=== PATIENT | male | born 1930 | race Two or more races ===

== ENCOUNTER 2017-07-24 17:49 | Inpatient (IN) | payer MEDICARE, OTHER ==
[~2017-07-24] VITALS: Ht 167.6 cm; Wt 77.6 kg
[~2017-07-24 17:49] MED LIST: [UNRECOGNIZED DRUG - CODE]
[2017-07-24 19:15] LABS: Basophils # (auto) 0 uL; Basophils % (auto) 0.4 % (0.0-2.0); Eosinophils # (auto) 0 uL; Hematocrit 30.6 % (41.0-53.0); Lymphocytes # (auto) 0.5 uL; Lymphocytes % (auto) 6.4 % (10.0-50.0); Mean Corpuscular Hemoglobin 31.5 pg (28.0-32.0); Mean Corpuscular Hgb Conc. 32.5 g/dL (32.0-36.0); Mean Corpuscular Volume 96.9 fL (80.0-100.0); Mean Platelet Volume 7.9 fL (6.9-10.8); Monocytes # (auto) 0.6 uL; Monocytes % (auto) 7.5 % (0.0-12.0); Neutrophils # (auto) 7.1 uL; Neutrophils % (auto) 85.7 % (37.0-80.0); Platelet Count (auto) 298 10^3/uL (140-450); Red Cell Distribution Width 16.9 % (11.8-14.3); White Blood Cell 8.3 10^3/uL (4.4-10.8)
[2017-07-24 19:38] LABS: INR 1.32 (0.9-1.15)
[2017-07-24 19:43] LABS: Albumin 2.5 g/dL (3.4-5.0); BUN/Creatinine Ratio 20.5; Bilirubin, Total 1.4 mg/dL (0.2-1.0); Calcium 8.1 mg/dL (8.5-10.1); Magnesium 2.6 mg/dL (1.6-2.6); Potassium 5.3 mmol/L (3.5-5.1); Total Protein 7.8 g/dL (6.4-8.2)
[2017-07-24 20:34] LABS: B-Type Natriuretic Peptide > 5000.00 pg/mL (0-100)
[2017-07-24 20:52] LABS: Temperature: 22.2 C (20.0-25.0)
[2017-07-24 22:29] LABS: Urine Bilirubin Negative (Negative); Urine Blood TRACE /uL (Negative); Urine Color Yellow (Yellow); Urine Glucose Normal (Normal); Urine Hyaline Cast MOD /lpf (0 - 2); Urine Ketone Negative (Negative); Urine Mucus FEW (None Seen); Urine Nitrite Negative (Negative); Urine RBC 4 /hpf (0 - 3); Urine Squamous Epithelial Cell FEW /hpf (<5); Urine Urobilinogen Normal (Negative); Urine pH 5.5 (5.0-8.0)
[2017-07-24] MEDS ORDERED: FUROSEMIDE 20 MG/2 ML VIAL IV ONE (22:45)
[2017-07-24] MEDS ORDERED: ASPirin 81 mg TAB PO ONE (22:45)
[2017-07-25] MEDS ORDERED: cefTRIAXone 1GM/50ML D5W 50 ML IV ONE ×2 (01:15→02:45)
[2017-07-25] MEDS ORDERED: LIDOCAINE 2% JELLY 11ml (GLYDO) UR ONE (01:45)
[2017-07-25] MEDS ORDERED: HYDROmorphone HCL 2 MG/ML VL IV PRN (02:15)
[2017-07-25] MEDS ORDERED: ONDANSETRON HCL 4 MG/2 ML VIAL IV PRN (02:15)
[2017-07-25] MEDS ORDERED: TEMAZEPAM 15 MG CAP PO PRN (02:15)
[2017-07-25] MEDS ORDERED: HYDROcodone-ACET 5/325MG TAB PO PRN (02:15)
[2017-07-25] MEDS ORDERED: NITROGLYCERIN 0.4 MG SL TAB SL PRN (02:15)
[2017-07-25] MEDS ORDERED: ACETAMINOPHEN 325 MG TAB PO PRN (02:15)
[2017-07-25] MEDS ORDERED: LEVOFLOXACIN 750MG 150 ML IV ONE (02:30)
[2017-07-25] MEDS ORDERED: FUROSEMIDE 20 MG/2 ML VIAL IV ONE (03:00)
[2017-07-25] MEDS ORDERED: FUROSEMIDE 20 MG/2 ML VIAL ONE (03:55)
[2017-07-25] MEDS ORDERED: FUROSEMIDE 20 MG TAB PO SCH (06:00)
[2017-07-25] MEDS ORDERED: FUROSEMIDE 20 MG/2 ML VIAL IV SCH (06:00)
[2017-07-25] MEDS ORDERED: BUMETANIDE (0.25 MG/ML) INJ 10ML IV ONE (09:30)
[2017-07-25] MEDS: ENOXAPARIN SOD 30 MG/0.3 ML SYRINGE SC SCH (09:50)
[2017-07-25] MEDS: PANTOPRAZOLE 40 MG TAB PO SCH (09:50)
[2017-07-25] MEDS: AMIODARONE HCL 200 MG TAB PO SCH (09:50)
[2017-07-25] MEDS ORDERED: METOPROLOL SUCCINATE XL 50 MG TAB PO SCH (10:00)
[2017-07-25 12:26] LABS: Basophils # (auto) 0 uL; Basophils % (auto) 0.6 % (0.0-2.0); Eosinophils # (auto) 0 uL; Hematocrit 31.1 % (41.0-53.0); Hemoglobin 10.2 g/dL (13.5-17.5); Lymphocytes # (auto) 0.5 uL; Lymphocytes % (auto) 6.4 % (10.0-50.0); Mean Corpuscular Hemoglobin 31.8 pg (28.0-32.0); Mean Corpuscular Hgb Conc. 32.8 g/dL (32.0-36.0); Mean Corpuscular Volume 97.1 fL (80.0-100.0); Mean Platelet Volume 7.7 fL (6.9-10.8); Monocytes # (auto) 0.5 uL; Monocytes % (auto) 6.3 % (0.0-12.0); Neutrophils # (auto) 7.1 uL; Neutrophils % (auto) 86.7 % (37.0-80.0); Nucleated Red Blood Cells % 0.1 %; Platelet Count (auto) 269 10^3/uL (140-450); Red Cell Distribution Width 16.5 % (11.8-14.3); White Blood Cell 8.2 10^3/uL (4.4-10.8)
[2017-07-25 12:46] LABS: BUN/Creatinine Ratio 20.8; Calcium 7.9 mg/dL (8.5-10.1); Potassium 4.3 mmol/L (3.5-5.1)
[2017-07-25 12:55] LABS: Phosphorus 3.8 mg/dL (2.5-4.90)
[2017-07-25 14:08] VITALS: BP 97/68
[2017-07-25] MEDS ORDERED: METO25TA5 PO (15:34)
[2017-07-25] MEDS ORDERED: AMIO200T33 PO (15:34)
[2017-07-25] MEDS ORDERED: SIMV10TA84 PO (15:34)
[2017-07-25] MEDS ORDERED: MULT-228 PO (15:34)
[2017-07-25] MEDS ORDERED: FERR1TAB36 PO (15:34)
[2017-07-25] MEDS ORDERED: BUME0.5T3 PO (15:34)
[2017-07-25] MEDS ORDERED: TRAM50TA2 PO (15:34)
[2017-07-25] MEDS ORDERED: LORA-622 PO (15:34)
[2017-07-25] MEDS: BUMETANIDE (0.25MG/ML) 4 ML VIAL IV SCH ×2 (16:59→18:24)
[2017-07-25 17:00] VITALS: BP 101/61
[2017-07-25] MEDS: POTASSIUM CHL 10% (20 MEQ/15ML) 15ml ORAL SOLN PO SCH (17:00)
[2017-07-25 20:00] VITALS: BP 112/63
[2017-07-25] MEDS ORDERED: SIMVASTATIN 10 MG PO SCH (22:00)
[2017-07-25] MEDS: cefTRIAXone 1GM/50ML D5W 50 ML IV SCH (22:11)
[2017-07-25] MEDS: PRAVASTATIN SODIUM 20 MG TAB PO SCH (22:12)
[2017-07-26 04:37] VITALS: BP 95/47
[2017-07-26] MEDS: BUMETANIDE (0.25MG/ML) 4 ML VIAL IV SCH ×2 (06:00→17:32)
[2017-07-26 07:02] LABS: Basophils # (auto) 0 uL; Basophils % (auto) 0.4 % (0.0-2.0); Eosinophils # (auto) 0 uL; Eosinophils % (auto) 0.1 % (0.0-7.0); Hematocrit 27.8 % (41.0-53.0); Hemoglobin 9.4 g/dL (13.5-17.5); Lymphocytes # (auto) 0.5 uL; Lymphocytes % (auto) 5.8 % (10.0-50.0); Mean Corpuscular Hemoglobin 32.3 pg (28.0-32.0); Mean Corpuscular Hgb Conc. 33.8 g/dL (32.0-36.0); Mean Corpuscular Volume 95.6 fL (80.0-100.0); Mean Platelet Volume 8.2 fL (6.9-10.8); Monocytes # (auto) 0.5 uL; Neutrophils % (auto) 87.7 % (37.0-80.0); Platelet Count (auto) 275 10^3/uL (140-450); Red Cell Distribution Width 16.6 % (11.8-14.3)
[2017-07-26 07:08] LABS: Albumin 2.1 g/dL (3.4-5.0); Bilirubin, Total 1.1 mg/dL (0.2-1.0); Calcium 7.8 mg/dL (8.5-10.1); Magnesium 2.4 mg/dL (1.6-2.6); Potassium 4.2 mmol/L (3.5-5.1); Total Protein 6.9 g/dL (6.4-8.2)
[2017-07-26] MEDS: POTASSIUM CHL 10% (20 MEQ/15ML) 15ml ORAL SOLN PO SCH ×2 (08:46→17:32)
[2017-07-26 09:00] VITALS: BP 80/46
[2017-07-26] MEDS: ENOXAPARIN SOD 30 MG/0.3 ML SYRINGE SC SCH (10:38)
[2017-07-26] MEDS: PANTOPRAZOLE 40 MG TAB PO SCH (10:38)
[2017-07-26] MEDS: AMIODARONE HCL 200 MG TAB PO SCH (10:38)
[2017-07-26 13:00] VITALS: BP 104/67
[2017-07-26 17:00] VITALS: BP 109/67
[2017-07-26] MEDS: BOOST PLUS 8 ounce PO SCH (18:00)
[2017-07-26 20:00] VITALS: BP 99/51
[2017-07-26] MEDS: cefTRIAXone 1GM/50ML D5W 50 ML IV SCH (21:46)
[2017-07-26] MEDS: PRAVASTATIN SODIUM 20 MG TAB PO SCH (21:46)
[2017-07-26 21:47] VITALS: BP 99/51
[2017-07-26] MEDS ORDERED: LEVOFLOXACIN 750MG 150 ML IV SCH (22:00)
[2017-07-27 05:00] VITALS: BP 96/58
[2017-07-27] MEDS: BUMETANIDE (0.25MG/ML) 4 ML VIAL IV SCH (05:51)
[2017-07-27] MEDS: BOOST PLUS 8 ounce PO SCH (07:44)
[2017-07-27] MEDS: POTASSIUM CHL 10% (20 MEQ/15ML) 15ml ORAL SOLN PO SCH (07:45)
[2017-07-27 08:00] VITALS: BP 116/75
[2017-07-27 08:05] VITALS: BP 116/75
[2017-07-27] MEDS: PANTOPRAZOLE 40 MG TAB PO SCH (10:11)
[2017-07-27] MEDS: AMIODARONE HCL 200 MG TAB PO SCH (10:11)
[2017-07-27] MEDS: ENOXAPARIN SOD 30 MG/0.3 ML SYRINGE SC SCH (10:11)
[2017-07-27 11:27] LABS: INR 1.26 (0.9-1.15); Prothrombin Time 13.8 sec (9.37-12.3)
[2017-07-27 13:13] VITALS: BP 113/63
[2017-07-27 16:29] VITALS: BP 94/58
[2017-07-27 18:18] LABS: Body Fluid Polymorphonuclear 4 %
== END 2017-07-27 16:50 | disposition home health service (06) | DRG 682 ==
LOC: EDBD 17:49 → ER 18:03 → TELE 18:04 → TELE-CENTR 07-25 14:05
PROVIDERS: ADMIT Nurse Practitioner; ATTEND Internal Medicine
PROC: 5A09357 Assistance with Respiratory Ventilation, Less than 24 Consecutive Hours, Continuous Positive Airway Pressure (ICD-10-PCS; 2017-07-24)
PROC: 0W9B3ZZ Drainage of Left Pleural Cavity, Percutaneous Approach (ICD-10-PCS; principal; 2017-07-27)
DX: N17.0 Acute kidney failure with tubular necrosis (principal); J96.20 Acute and chronic respiratory failure, unspecified whether with hypoxia or hypercapnia; J90 Pleural effusion, not elsewhere classified; I50.43 Acute on chronic combined systolic (congestive) and diastolic (congestive) heart failure; J18.1 Lobar pneumonia, unspecified organism; I13.0 Hypertensive heart and chronic kidney disease with heart failure and stage 1 through stage 4 chronic kidney disease, or unspecified chronic kidney disease; D68.9 Coagulation defect, unspecified; E87.5 Hyperkalemia; N39.0 Urinary tract infection, site not specified; I42.9 Cardiomyopathy, unspecified; I27.21 Secondary pulmonary arterial hypertension; N18.4 Chronic kidney disease, stage 4 (severe); I08.1 Rheumatic disorders of both mitral and tricuspid valves; D64.9 Anemia, unspecified; E78.5 Hyperlipidemia, unspecified; R73.9 Hyperglycemia, unspecified; G47.00 Insomnia, unspecified; E78.00 Pure hypercholesterolemia, unspecified; N40.0 Benign prostatic hyperplasia without lower urinary tract symptoms; Z95.810 Presence of automatic (implantable) cardiac defibrillator; Z99.81 Dependence on supplemental oxygen; Z90.49 Acquired absence of other specified parts of digestive tract; Z79.899 Other long term (current) drug therapy; Z71.3 Dietary counseling and surveillance
CPT/HCPCS: 10030; 36415; 51702; 71010; 71250; 76604; 76775; 76942; 78582; 80048; 80053; 81001; 83735; 83880; 83986; 84100; 84443; 84484; 84550; 85025; 85379; 85610; 85730; 87086; 87205; 89051; 93005; 93306; 93970; 94761; 96365; 96367; 96375; 96376; J0696; J1956